=== PATIENT | female | born 1990 | race African-American/Black ===

== ENCOUNTER 2017-04-21 22:11 | Emergency (ER) | payer BC ==
[~2017-04-21] VITALS: Ht 167.6 cm; Wt 95.0 kg
[~2017-04-21 22:11] MED LIST: AMOXICILLIN500 MG PO; CONCEPT OB PO; DEPO-PROVER150 MG/ML IM; PENICILLN VK500 MG PO; PRENATAL1 TAB PO; SPRINTEC 2828 DAY PO; ULTRAM50 MG OR
[2017-04-22 01:20] VITALS: BP 170/102
== END 2017-04-22 01:20 | disposition home or self-care (01) | DRG 151 ==
LOC: ED 22:11
DX: R04.0 Epistaxis (principal); I10 Essential (primary) hypertension

== ENCOUNTER 2020-11-13 14:14 | Emergency (ER) | payer BC, MEDICAID ==
[~2020-11-13] VITALS: Ht 167.6 cm; Wt 103.8 kg
[2020-11-13 15:15] LABS: URINE BILIRUBIN - DIPSTICK NEGATIVE (NEGATIVE); URINE BLOOD DIPSTICK NEGATIVE (NEGATIVE); URINE COLOR YELLOW; URINE GLUCOSE - DIPSTICK NEGATIVE (NEGATIVE); URINE KETONE TRACE mg/dL (NEGATIVE); URINE LEUK ESTERASE TRACE (NEGATIVE); URINE NITRITE - DIPSTICK NEGATIVE (Negative); URINE PROTEIN - DIPSTICK 30 mg/dL (NEG-TRACE); URINE SPECIFIC GRAVITY >=1.030
[2020-11-13 15:18] LABS: URINE RBC 0-2 RBC/hpf (0-5); URINE WBC 0-2 WBC/hpf (0-5)
[2020-11-13 15:19] LABS: URINE SQUAMOUS EPITHELIAL CELL FEW EPI/hpf (0-FEW)
[2020-11-13] MEDS ORDERED: LABETALOL HYDR100 MG PO (16:05)
[2020-11-13] MEDS ORDERED: BAYER ASPIRIN E81 MG PO (16:06)
[2020-11-13] MEDS ORDERED: PRE-NATAL PO (16:07)
[2020-11-13 16:09] VITALS: BP 137/93
== END 2020-11-13 16:14 | disposition home or self-care (01) | DRG 833 ==
LOC: ED 14:14
DX: O46.93 Antepartum hemorrhage, unspecified, third trimester (principal); Z3A.30 30 weeks gestation of pregnancy

== ENCOUNTER 2021-12-02 19:39 | Emergency (ER) | payer OTHER ==
[~2021-12-02] VITALS: Ht 167.6 cm; Wt 109.0 kg
[~2021-12-02 19:39] MED LIST changes: +BAYER ASPIRIN E81 MG PO; +LABETALOL HYDR100 MG PO; +PRE-NATAL PO
[2021-12-02 23:02] VITALS: BP 189/126
== END 2021-12-03 04:22 | disposition home or self-care (01) ==
LOC: ED 19:39
DX: J06.9 Acute upper respiratory infection, unspecified (principal); I10 Essential (primary) hypertension; Z20.822 Contact with and (suspected) exposure to COVID-19

== ENCOUNTER 2023-04-25 10:53 | Emergency (ER) | payer MEDICAID ==
[~2023-04-25] VITALS: Ht 167.6 cm; Wt 113.0 kg
[2023-04-25 11:24] VITALS: BP 177/109
[2023-04-25] MEDS ORDERED: MAXITROL 0.1 %1 SUS OU (11:38)
[2023-04-25] MEDS ORDERED: ZYRTEC10 MG PO (11:38)
[2023-04-25 11:41] VITALS: BP 168/113
[2023-04-25 11:45] VITALS: BP 171/107
[2023-04-25 12:01] VITALS: BP 141/94
[2023-04-25] MEDS ORDERED: NORMODYNE/TRAN100 MG PO (12:26)
[2023-04-25 12:31] VITALS: BP 165/103
== END 2023-04-25 12:34 | disposition home or self-care (01) ==
LOC: ED 10:53
DX: H10.9 Unspecified conjunctivitis (principal); I10 Essential (primary) hypertension; T44.8X6A Underdosing of centrally-acting and adrenergic-neuron-blocking agents, initial encounter; Z91.128 Patient's intentional underdosing of medication regimen for other reason